=== PATIENT | female | born 1985 | race Caucasian/White ===

== ENCOUNTER 2022-02-08 11:26 | Outpatient (CLI) | payer SELFPAY ==
--- NOTE | 2022-02-08 | US_ITS ---
DIAGNOSTIC RIGHT DIGITAL TOMOSYNTHESIS MAMMOGRAPHY WITH CAD. RIGHT breast ultrasound, limited HISTORY: RT SIDE BREAST LUMP 9 O'CLOCK COMPARISON: None available. Technique: CC, MLO and ML views. Spot compression RIGHT CC and MLO. Breast composition: There are scattered areas of fibroglandular density. Regular markers are placed at a middle depth of the RIGHT breast near the 9-10 o'clock axis. No mass or abnormality is identified. There is some very mild distortion and asymmetry more anteriorly in the RIGHT breast. This area improves with spot compression views. RIGHT breast ultrasound, limited. No abnormality is noted within the RIGHT breast near 9:00 where the palpable area and pain is. There is no soft tissue mass or distortion. IMPRESSION: BI-RADS: 2-Benign FOLLOW UP: Age 41 MTDD
--- NOTE | 2022-02-08 11:37 | MM_ITS ---
WS: [id number] DIAGNOSTIC RIGHT DIGITAL TOMOSYNTHESIS MAMMOGRAPHY WITH CAD. RIGHT breast ultrasound, limited HISTORY: RT SIDE BREAST LUMP 9 O'CLOCK COMPARISON: None available. Technique: CC, MLO and ML views. Spot compression RIGHT CC and MLO. Breast composition: There are scattered areas of fibroglandular density. Regular markers are placed at a middle depth of the RIGHT breast near the 9-10 o'clock axis. No mass or abnormality is identifie d. There is some very mild distortion and asymmetry more anteriorly in the RIGHT breast. This area im proves with spot compression views. RIGHT breast ultrasound, limited. No abnormality is noted within the RIGHT breast near 9:00 where the palpable area and pain is. There is no soft tissue mass or distortion. MM/[place] [id number] IMPRESSION: BI-RADS: 2-Benign FOLLOW UP: Age 41
== END 2022-02-08 11:27 | disposition home or self-care (01) ==
PROVIDERS: PCP Family Medicine; Visit Provider Family Medicine
DX: N63.15 Unspecified lump in the right breast, overlapping quadrants (principal)
CPT/HCPCS: 76642; 77061